=== PATIENT | female | born 1965 | race Two or more races ===

== ENCOUNTER 2022-01-17 07:09 | Outpatient (CLI) | payer OTHER | END 2022-01-17 07:17 | disposition home or self-care (01) | LOC: RX STUDY 07:09 | PROVIDERS: ATTEND Surgery | DX: K57.20 Diverticulitis of large intestine with perforation and abscess without bleeding (principal); Z93.3 Colostomy status; R10.9 Unspecified abdominal pain; R19.4 Change in bowel habit ==

== ENCOUNTER 2022-03-25 07:00 | Day surgery (SDC) | payer OTHER ==
[~2022-03-25] VITALS: Ht 157.5 cm; Wt 58.5 kg
[~2022-03-25 07:00] MED LIST: CLONAZEPAM0.5 MG PO; DILTIAZEM ER180 M2 PO; DULCOLAX5 MG PO; FLOVENT IH; GABAPENTIN300 M2 PO; TIROSINT50 MCG PO
[2022-03-28] MEDS ORDERED: FLOVENT HFA12 GM (08:12)
[2022-03-28] MEDS ORDERED: QUETIAPINE FUM200 MG (08:12)
[2022-03-28] MEDS ORDERED: TRAZODONE HCL50 MG (08:12)
[2022-03-28] MEDS ORDERED: MAXIMUM D3325 MCG (08:12)
[2022-03-28] MEDS ORDERED: LORATADINE10 MG (08:12)
[2022-03-28] MEDS ORDERED: BUPROPION HCL200 MG (08:12)
[2022-03-28] MEDS ORDERED: DOCUSATE CALCI240 MG (08:13)
[2022-03-28] MEDS ORDERED: LINZESS290 MCG (08:13)
[2022-03-28] MEDS ORDERED: FLUOXETINE HCL20 MG (16:14)
== END 2022-03-25 18:50 | disposition home or self-care (01) ==
LOC: O/R 07:00 → CIR.AMB 07:00 → SURG 07:00 → CIR.AMB 18:50 → O/R 18:50
PROVIDERS: ATTEND Surgery
DX: K57.20 Diverticulitis of large intestine with perforation and abscess without bleeding (principal); Z93.3 Colostomy status; Z20.822 Contact with and (suspected) exposure to COVID-19

== ENCOUNTER 2022-04-01 05:35 | Inpatient (IN) | payer OTHER ==
[~2022-04-01 05:35] MED LIST changes: +BUPROPION HCL200 MG; +DOCUSATE CALCI240 MG; +FLOVENT HFA12 GM; +FLUOXETINE HCL20 MG; +LINZESS290 MCG; +LORATADINE10 MG; +MAXIMUM D3325 MCG; +QUETIAPINE FUM200 MG; +TRAZODONE HCL50 MG
[2022-04-05] MEDS ORDERED: PERCOCET 5-3251 EACH PO (09:58)
[2022-04-07] MEDS ORDERED: ED-SPAZ0.125 MG PO (11:16)
[2022-04-07] MEDS ORDERED: ACIDOPHILUS1 EAC3 PO (11:16)
[2022-04-07] MEDS ORDERED: PERCOCET 5-3251 EACH PO (11:16)
== END 2022-04-07 16:39 | disposition home or self-care (01) | DRG 331 ==
LOC: O/R 05:35 → SURH 07:11
PROVIDERS: ADMIT Surgery; ATTEND Surgery
PROC: 0DTP0ZZ Resection of Rectum, Open Approach (ICD-10-PCS; 2022-04-01)
PROC: 0DNW0ZZ Release Peritoneum, Open Approach (ICD-10-PCS; 2022-04-01)
PROC: 0DBU0ZZ Excision of Omentum, Open Approach (ICD-10-PCS; 2022-04-01)
PROC: 0DQN0ZZ Repair Sigmoid Colon, Open Approach (ICD-10-PCS; 2022-04-01)
PROC: 0DJD8ZZ Inspection of Lower Intestinal Tract, Via Natural or Artificial Opening Endoscopic (ICD-10-PCS; 2022-04-01)
PROC: 0DBN0ZZ Excision of Sigmoid Colon, Open Approach (ICD-10-PCS; principal; 2022-04-01 09:00)
DX: K57.20 Diverticulitis of large intestine with perforation and abscess without bleeding (principal); N73.6 Female pelvic peritoneal adhesions (postinfective); Z53.31 Laparoscopic surgical procedure converted to open procedure; I10 Essential (primary) hypertension